=== PATIENT | female | born 2000 | race Caucasian/White ===

== ENCOUNTER 2023-08-10 08:39 | Emergency (ER) | payer SELFPAY ==
[2023-08-10 08:58] VITALS: BP 110/63; PULSE 68; RESP 18; TEMP 36.7; O2SAT 97
[2023-08-10 09:14] LABS: Basophils % 0.3 %; Hematocrit 40.1 % (36-47); Lymphocytes # 0.9 10^3/uL (0.8-4.8); Lymphocytes % 9.7 %; Mean Corpuscular HGB Conc 33.7 g/dL (30-55); Mean Corpuscular Hemoglobin 30.3 pg (27-33); Mean Corpuscular Volume 90.1 fl (85-98); Mean Platelet Volume 9.3 fL (7.4-10.4); Monocytes # 0.9 10^3/uL (0.2-0.9); Monocytes % 10.3 %; Neutrophils # 6.92 10^3/uL (1.8-7.7); Neutrophils % 79.4 %; Nucleated Red Blood Cells % 0 %; Platelet Count 194 10^3/cmm (157-399); Red Blood Count 4.45 10^6/uL (3.85-5.65); Red Cell Distribution Width 11.7 % (12.1-15.1); White Blood Count 8.73 10^3/uL (3.29-11.43)
[2023-08-10] MEDS: sodium chloride 0.9% 1,000 ML 999 ML IV (09:19)
[2023-08-10] MEDS: ondansetron 2 mg/ML SDV 2 mL 4 MG IVP (09:19)
--- NOTE | 2023-08-10 09:22 | W.ED.FEMALGU ---
HPI - Female Genitourinary General: Chief complaint: Urogenital-Female Stated complaint: fever, nausea, left side abd pain Time Seen by Provider: 08/10/23 08:53 Source: patient Mode of arrival: ambulatory Limitations: no limitations History of Present Illness: Patient is a nice 23-year-old female who presents to ED today with a complaint of left flank pain. Patient states over the past 1 to 2 days she has noticed burning with urination. She states she will frequently develop UTIs when she holds my pee too long . She states this stems from a severe kidney infection she had back when she was a teenager (?). She has noticed urinary urgency and hesitancy. She does not complain of any abdominal pain. She has not been running fevers. No vomiting. She has no history of kidney stones. She has not noticed any blood in her urine. She currently is on her menstrual cycle. MD elicited complaint: dysuria and UTI Pertinent past history: recurrent UTIs Onset (ago): day(s) Severity: moderate Female Urogenital Radiation: L Flank Quality of pain: dull and aching Consistency: constant Vaginal discharge: none Urinary symptoms: Dysuria, Flank Pain and Urgency Exacerbating factors: urination Relieving factors: none Associated symptoms: Reports no associated symptoms; Deny abdominal pain, headache(s) or nausea Treatment prior to arrival: none Patient : No Review of Systems Const: Denies: fever(s), chills, body aches, fatigue or malaise Card: Denies: chest pain Resp: Denies: dyspnea GI: Denies: abdominal pain, nausea, vomiting or diarrhea : Reports: flank pain, dysuria, urinary urgency and urinary hesitancy; Denies: difficulty voiding or pelvic pain Musc: Reports: back pain (L flank) Skin/Breast: Denies: rash Neuro: Denies: headache(s) or dizziness Physical Exam Const: COMMON NORMALS: no acute distress, average body habitus, patient oriented x3, no limitations, healthy appearing, alert and well nourished Resp: COMMON NORMALS: normal respiratory effort and clear to auscultation bilaterally AUSCULTATION: clear to auscultation bilaterally Cardio: COMMON NORMALS: regular rate and regular rhythm RATE: regular rate RHYTHM: regular rhythm GI: COMMON NORMALS: Normal to inspection, nondistended, normoactive bowel sounds present, Soft to palpation, non-tender, No hepatosplenomegaly present and no masses PALPATION: Yes Soft to palpation and Yes No hepatosplenomegaly present : BLADDER/KIDNEY EXAM: Yes CVA tenderness on the left Back/Pelvis: GENERAL BACK: Yes CVA tenderness Neuro: COMMON NORMALS: patient oriented x3 SENSORIUM/ORIENTATION: Yes alert Course Vital Signs: Vital signs: Vital Signs Temperature 98.0 F 08/10/23 08:58 Pulse Rate 68 08/10/23 08:58 Respiratory Rate 18 08/10/23 08:58 Blood Pressure 110/63 08/10/23 08:58 Pulse Oximetry 97 08/10/23 08:58 MDM - Female Medical Decision Making Patient here with UTI-like symptoms as well as left flank pain. She appears in no acute distress. No vomiting. Vital signs are stable. Lab work today showing a normal white count. Chemistry panel is unremarkable. is negative. Urine has a cloudy appearance with 2+ leuks and over 100 WBCs. She does have 2+ blood however she is currently on her menstrual cycle so this could be contamination. At this time based on her history and physical exam I do not have a suspicion for nephro/ureterolithiasis. She will be covered with antibiotics for pyelonephritis. She was given IM Rocephin prior to discharge. Strict return ED precautions given. Medical Records I reviewed the patient's medical records. Lab Data I reviewed the patient's lab results. 08/10/23 09:05 08/10/23 09:05 Laboratory Results WBC 8.73 10^3/uL (3.29-11.43) 08/10/23 09:05 RBC 4.45 10^6/uL (3.85-5.65) 08/10/23 09:05 Hgb 13.50 g/dL (11.27-16.99) 08/10/23 09:05 Hct 40.1 % (36-47) 08/10/23 09:05 MCV 90.1 fl (85-98) 08/10/23 09:05 MCH 30.3 pg (27-33) 08/10/23 09:05 MCHC 33.7 g/dL (30-55) 08/10/23 09:05 RDW 11.7 % (12.1-15.1) L 08/10/23 09:05 Plt Count 194 10^3/cmm (157-399) 08/10/23 09:05 MPV 9.3 fL (7.4-10.4) 08/10/23 09:05 Neut % (Auto) 79.4 % 08/10/23 09:05 Lymph % (Auto) 9.7 % 08/10/23 09:05 [place] % (Auto) 10.3 % 08/10/23 09:05 Eos % (Auto) 0.0 % 08/10/23 09:05 Baso % (Auto) 0.3 % 08/10/23 09:05 Neut # (Auto) 6.92 10^3/uL (1.8-7.7) 08/10/23 09:05 Lymph # (Auto) 0.9 10^3/uL (0.8-4.8) 08/10/23 09:05 [place] # (Auto) 0.9 10^3/uL (0.2-0.9) 08/10/23 09:05 Eos # (Auto) 0.0 10^3/uL (0.0-0.8) 08/10/23 09:05 Baso # (Auto) 0.0 10^3/uL (0.0-0.1) 08/10/23 09:05 Nucleated RBC % (auto) 0 % 08/10/23 09:05 Nucleated RBCs # 0.0 /100WBC 08/10/23 09:05 Sodium 137 mmol/L (136-145) 08/10/23 09:05 Potassium 4.1 mmol/L (3.5-5.1) 08/10/23 09:05 Chloride 104 mmol/L (98-107) 08/10/23 09:05 Carbon Dioxide 24 mmol/L (22-29) 08/10/23 09:05 Anion Gap 13.1 (5-19) 08/10/23 09:05 BUN 7 mg/dL (6-20) 08/10/23 09:05 Creatinine 0.6 mg/dL (0.5-0.9) 08/10/23 09:05 GFR Calculation 121.8 mL/min (90-130) 08/10/23 09:05 Glucose 121 mg/dL (65-115) H 08/10/23 09:05 Calculated Osmolality 283 mOsm/kg (285-295) L 08/10/23 09:05 Calcium 9.1 mg/dL (8.5-10.5) 08/10/23 09:05 Total Bilirubin 0.5 mg/dL (0.15-1.2) 08/10/23 09:05 AST 13 U/L (0-32) 08/10/23 09:05 ALT 8 U/L (0-33) 08/10/23 09:05 Alkaline Phosphatase 50 U/L (35-105) 08/10/23 09:05 Total Protein 7.1 g/dL (6.6-8.7) 08/10/23 09:05 Albumin 4.4 g/dL (3.5-5.2) 08/10/23 09:05 Globulin 2.7 g/dL (1.3-4.6) 08/10/23 09:05 Lipase 10 U/L (13-60) L 08/10/23 09:05 HCG, Qual Negative (Negative) 08/10/23 09: Urine Color Yellow (Yellow) 08/10/23:28 Urine Appearance Cloudy (CLEAR) A 08/10/23: Urine pH 5 (5-7) 08/10/23: Ur Specific [place] 1.020 (1.005-1.030) 08/10/23: Urine Protein Trace (Negative) 08/10/23 09: Urine Glucose (UA) Norm (Normal) 08/10/23 09: Urine Ketones 1+ (Negative) H 08/10/23:28 Urine Blood 2+ (Negative) H 08/10/23: Urine Nitrate Negative (Negative) 08/10/23: Urine Bilirubin 1+ (Negative) H 08/10/23 09:28 Urine Urobilinogen Norm mg/dL (Negative) 08/10/23: Ur Leukocyte Esterase 2+ (Negative) H 08/10/23: Urine RBC 0-4 /hpf (0-2) H 08/10/23:28 Urine WBC >100 /hpf (0-5) H 08/10/23 09:28 Ur Squamous Epith Cells 0-4 /hpf (0-5) H 08/10/23:28 Ur Transition Epith Cell 0-4 /hpf 08/10/23 09:28 Amorphous Sediment Not Reportable 08/10/23 09:28 Urine Bacteria Trace /hpf (NONE) 08/10/23 09:28 Urine Mucus 3+ /hpf 08/10/23 09:28 Ur Oval Fat Bodies 1+ /hpf 08/10/23 09:28 No radiology studies performed this visit Discharge Plan Discharge Patient Disposition: Home Clinical Impression: Pyelonephritis Condition: Stable Prescriptions: New Cipro 500 mg tablet 500 mg PO Q12H Qty: 14 0RF No Action acetaminophen 500 mg Tablet 500 mg PO Q6H PRN (Reason: Pain) Discharge Orders: Discharge ED (Routine); Ordered 08/10/23 Ordered By: Domenica Mcmanus Patient Instructions: Kidney Infection (ED), Pyelonephritis Activity Restrictions/Additional Instructions: As we discussed you need to return to the emergency department for worsening flank pain, repetitive episodes of vomiting, inability to hold down your antibiotics, fevers, generally feeling worse or unwell, or any other concerns you may have. I hope you begin to feel better soon. Coding Level of Care Code ED [employer] for Tristian Duke
[2023-08-10 09:28] LABS: Alanine Aminotransferase 8 U/L (0-33); Albumin Level 4.4 g/dL (3.5-5.2); Alkaline Phosphatase 50 U/L (35-105); Anion Gap 13.1 (5-19); Aspartate Amino Transferase 13 U/L (0-32); Blood Urea Nitrogen 7 mg/dL (6-20); Calcium 9.1 mg/dL (8.5-10.5); Carbon Dioxide 24 mmol/L (22-29); Chloride 104 mmol/L (98-107); Globulin 2.7 g/dL (1.3-4.6); Glomerular Filtration Rate 121.8 mL/min (90-130); Glucose 121 mg/dL (65-115); Lipase 10 U/L (13-60); Osmolality Calculated 283 mOsm/kg (285-295); Potassium 4.1 mmol/L (3.5-5.1); Sodium 137 mmol/L (136-145); Total Bilirubin 0.5 mg/dL (0.15-1.2); Total Protein 7.1 g/dL (6.6-8.7)
[2023-08-10 09:35] LABS: HCG, Serum Qual Negative (Negative)
[2023-08-10 09:48] LABS: Bilirubin Urine 1+ (Negative); Blood Urine 2+ (Negative); Glucose Urine UA Norm (Normal); Ketones Urine 1+ (Negative); Nitrate Urine Negative (Negative); Protein Urine Trace (Negative); Urine Appearance Cloudy (CLEAR); Urine Color Yellow (Yellow); pH Urine 5 (5-7)
[2023-08-10 09:49] LABS: Add Urine Microscopic? YES; Leukocyte Esterase Urine 2+ (Negative); Urobilinogen Urine Norm (Negative)
[2023-08-10 10:03] LABS: Add Urine Culture? Yes; Bacteria Urine TRACE /hpf; Mucus Urine 3+ /hpf; Oval Fat Bodies Urine 1+ /hpf; RBC Urine 0-4 /hpf (0-2); Squamous Epithelial Cell Urine 0-4 /hpf (0-5); Transitional Epi Cells Urine 0-4 /hpf; WBC Urine >100 /hpf (0-5)
[2023-08-10] MEDS: cefTRIAXone 1,000 MG in water for injection-sterile 2.1 ML 2.5 MG IM (10:30)
[2023-08-10 10:31] VITALS: BP 110/63; PULSE 68; RESP 18; TEMP 36.7; O2SAT 97
== END 2023-08-10 10:34 | disposition home or self-care (01) ==
PROVIDERS: Family Medicine; Emergency Provider Physician Assistant
DX: N12 Tubulo-interstitial nephritis, not specified as acute or chronic (principal)
CPT/HCPCS: 36415; 80053; 81001; 83690; 84703; 85025; 87086; 96361; 96372; 96374; 99284; J0696; J2405; J7030